=== PATIENT | female | born 2000 | race Two or more races ===

== ENCOUNTER 2025-02-16 19:36 | Emergency (ER) | payer OTHER ==
[~2025-02-16] VITALS: Ht 165.1 cm; Wt 61.2 kg
[2025-02-16 20:15] VITALS: BP 113/72; O2SAT 99
[2025-02-16] MEDS ORDERED: CEFTRIAXONE SODIUM 1,000 MG VIAL IM ONE (21:00)
[2025-02-16] MEDS ORDERED: NEOMYCIN/BACITRACIN/POLYMYXINB 28.35 GM OINT..GM. TOP ONE (21:00)
[2025-02-16] MEDS ORDERED: BACITRACIN-NEOMYCIN-POLYMYXIN 0.9 GM PACKET TOP ONE (21:11)
[2025-02-16] MEDS ORDERED: CEFTRIAXONE SODIUM 1,000 MG VIAL ONE (21:12)
[2025-02-16] MEDS ORDERED: KETOROLAC TROMETHAMINE 30 MG VIAL ONE (21:23)
[2025-02-16] MEDS ORDERED: KETOROLAC TROMETHAMINE 30 MG VIAL IM ONE (21:30)
[2025-02-16] MEDS ORDERED: IBUPROFEN600 MG PO (21:37)
[2025-02-16] MEDS ORDERED: CEPHALEXIN500 MG PO (21:37)
== END 2025-02-16 22:46 | disposition home or self-care (01) ==
LOC: ER 19:36
DX: S50.871A Other superficial bite of right forearm, initial encounter (principal); W54.0XXA Bitten by dog, initial encounter; Y93.89 Activity, other specified; Y92.89 Other specified places as the place of occurrence of the external cause; Y99.8 Other external cause status; Z88.8 Allergy status to other drugs, medicaments and biological substances
CPT/HCPCS: 96372; 99282; J0696; J1885